=== PATIENT | female | born 1975 | race Caucasian/White ===

== ENCOUNTER → 2018-12-31 17:30 | Observation (INO) ==
[2018-12-31 14:05] LABS: Amphetamine Screen,Urine Negative ng/mL (Cutoff=1000); Barbiturate Screen,Urine Negative ng/mL (Cutoff=200); Benzodiazepines Screen,Urine Negative ng/mL (Cutoff=200); Cannabinoid Screen,Urine Negative ng/mL (Cutoff = 50); Cocaine Screen,Urine Negative ng/mL (Cutoff= 300); Opiate Screen,Urine Negative ng/mL (Cutoff=300); Phencyclidine Screen,Urine Negative ng/mL (Cutoff=25)
[~2018-12-31 17:30] MED LIST: Ringers Solution, Lactated 1,000 ML IVC ONE; Ringers Solution, Lactated 1,000 ML IVC SCH; Ringers Solution, Lactated 1,000 ML ONE
--- NOTE | 2018-12-31 17:54 | OB/GYN Progress Note ---
Date of Encounter: 12/31/18 Time of Encounter: 17:51 - Assessment and Plan (1) 38 weeks gestation of Status: Acute (2) Nausea and vomiting of , antepartum Status: Acute Tracing reviewed with Dr. Enrique, discharged home with labor and when to return to triage precautions. Subjective - Subjective Interval history: Patient sent for over from the office with orders from Dr. Biswas for IV hydration. Care coordinated by nurses with Dr. Biswas. Requested by RN per Dr. Biswas to evaluate tracing if tracing is appropriate to discharge patient. Patient states she was sick with nausea vomiting and diarrhea over the weekend and was dehydrated. States she has been followed in the office for MAURICE checks in due to low MAURICE is Dr. Biswas on is her to come over and have IV hydration. Reports good movement, denies vaginal bleeding or leaking of fluid, Scheduled for induction in 2 days Antepartum ROS: movement normal, no loss of fluid, no vaginal bleeding, no contractions Objective - Vital Signs Vital Signs: Intake and Output 12/31/18 12/31/18 12/31/18 07:59 15:59 23:59 Other: Weight 34.53 kg Patient Weight 12/31/18 23:59 Weight 34.53 kg - Exam FHR comments: At discharge Baseline 135 and category 1 reactive NST. Abdomen: Present: soft
== END | disposition home or self-care (01) ==
LOC: 1NENULAB
PROVIDERS: ADMIT Obstetrics & Gynecology; ATTEND Obstetrics & Gynecology

== ENCOUNTER 2019-01-03 06:00 | Inpatient (IN) ==
[2019-01-03] MEDS ORDERED: *HR* Nalbuphine 10 MG/ML AMPUL IVP PRN (06:24)
[2019-01-03] MEDS ORDERED: Ondansetron 4 MG/2 ML VIAL IVP PRN (06:24)
[2019-01-03] MEDS ORDERED: Famotidine 20 MG/2 ML VIAL IVP PRN (06:24)
[2019-01-03] MEDS ORDERED: Metoclopramide 10 MG/2 ML VIAL IVP PRN (06:24)
[2019-01-03] MEDS ORDERED: miSOPROStol 25 MCG TABLET PO PRN (06:24)
[2019-01-03] MEDS ORDERED: Naloxone 0.4 MG/ML INJ IVP PRN (06:24)
[2019-01-03] MEDS ORDERED: Oxytocin 20 units/ LR 1000 mL 20 UNIT/1,000 ML BAG IVC SCH ×2 (06:30→18:32)
[2019-01-03] MEDS ORDERED: Ringers Solution, Lactated 1,000 ML IVC SCH (06:30)
--- NOTE | 2019-01-03 06:52 | Anesthesia Evaluation PreOp ---
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 History: Denies Any Significant HX Other Medical History: GERD Anesthesia History: No Prior Anesthetic Complications, Past Anesthesia (2 vaginal del in past 1 with epidural, 1 without.) Alcohol Use: none Drug use: none Medications and Allergies Omeprazole [PriLOSEC] 01/03/19 [History] Allergy/AdvReac Type Severity Reaction Status Date / Time No Known Allergies Allergy Verified 01/03/19 06:27 Anesthesia Exam - HEENT Pupil (Motor): Pupils equal Mallampati: III Teeth: Normal Oral Opening: Greater than 3 - SCROLL MACHINE OPERATOR LOC: Oriented SCROLL MACHINE OPERATOR Motor: Normal RUE, Normal LUE, Normal RLE, Normal LLE, Normal Face SCROLL MACHINE OPERATOR Sensory: Normal: RUE, LUE, RLE, LLE, Face - Cardiac Rhythm: Regular Murmur: None - Pulmonary Breath Sounds: bilateral Clear Respiratory Effort: Symmetrical Anesthesia Assess/Plan ASA Score: 2 Level of consciousness: Cooperative, Oriented Anesthetic Plan: General, Spinal, Epidural Monitoring Plan: Standard Monitors Recovery Plan: PACU
[2019-01-03] MEDS ORDERED: Epidural Premix (fent/bupiv) 110 ML EP SCH (07:00)
[2019-01-03 07:04] LABS: Amphetamine Screen,Urine Negative ng/mL (Cutoff=1000); Barbiturate Screen,Urine Negative ng/mL (Cutoff=200); Benzodiazepines Screen,Urine Negative ng/mL (Cutoff=300); Cannabinoid Screen,Urine Negative ng/mL (Cutoff = 50); Cocaine Screen,Urine Negative ng/mL (Cutoff= 300); Opiate Screen,Urine Negative ng/mL (Cutoff=300); Phencyclidine Screen,Urine Negative ng/mL (Cutoff=25)
--- NOTE | 2019-01-03 07:11 | Event Note ---
Date of Encounter: 01/03/19 Time of Encounter: 07:07 Double cervical ripening balloon inserted without difficulty. 60 mL sterile water instilled into uterine balloon, 40 mL instilled into vaginal balloon. Patient tolerated with minimal discomfort.
[2019-01-03 07:22] LABS: Basophils % 0.2 %; Eosinophils # 0.1 K/mcL (0.0-0.6); Eosinophils % 0.9 %; Hematocrit 34.7 % (35.3-44.9); Hemoglobin 11.3 g/dL (11.5-15.4); Immature Granulocytes % 0.5 % (0-4); Lymphocytes # 2.2 K/mcL (0.6-4.6); Lymphocytes % 27.8 %; Mean Corpuscular HGB Conc 32.6 g/dL (31.6-35.5); Mean Corpuscular Hemoglobin 27.8 pg (28.0-33.3); Mean Corpuscular Volume 85.5 fL (83.0-100.0); Mean Platelet Volume 10.2 fL (9.4-12.4); Monocytes # 0.5 K/mcL (0.0-1.3); Neutrophils # 5.2 K/mcL (1.6-8.9); Platelet Count 331 K/mcL (140-400); Red Blood Count 4.06 M/mcL (3.82-4.97); Red Cell Distribution Width 13.3 % (11.5-14.5); Segmented Neutrophils % 64.6 %
--- NOTE | 2019-01-03 07:26 | OB/GYN History & Physical ---
Date of Encounter: 01/03/19 Time of Encounter: 07:16 Assessment and Plan (1) 39 weeks gestation of Current visit: Yes Status: Acute start pitocin, expectant management (2) Elective induction of labor planned Current visit: Yes Status: Acute planned induction proceeding as planned History of Present Illness Chief complaint: presents for induction of labor HPI: Ms. Jernigan is a 43 year old female at 39w1d who presents for induction of labor. She has had two previous vaginal deliveries with two miscarriages and one D&C. She had an uneventful that was uncomplicated by either gestational HTN or gestational DM. She does note an episode of gastroenteritis over this past weekend requiring administration of IV fluids and since that time has not had a bowel movement. She denies any fevers/chills, regular contractions, nausea/vomiting, diarrhea. She reports clear vaginal discharge but denies any foul smells or copious liquid drainage. Pmhx: GERD during for which she takes prilosec. Other daily medications include vitamins. No known drug allergies. No hx of hosp italization outside of childbirth. SurgHx: D&C. Socialhx: Regular diet. No regular exercise pattern. No illicit drugs. No tobacco usage. Drinks one soda per day. 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 No recent foreign travel. Past Med Surg Social Fam HX - Past Medical History Medical history: no medical history Psychiatric history: anxiety - Past Surgical History Surgical History: non-contributory Additional surgical history: wisdom teeth. D&C-2015 - Social History Smoking Status: Never smoker Smokeless Tobacco Status: No Alcohol use: none Drug use: none Occupational status: employed Current living situation: Home - Independent, With Family Activity Level: Independent ambulation Recent Out of Country Travel Within the Last 8 Weeks: No Exposure or Possible Exposure to Illness During Travel: No - Family History Father Living Status: Still Living Hx Family Cardiac Disorders: Yes (bypass surgery, aortic anyerusm) Hx Family Respiratory Disorders: No Hx Family Cancer: No Hx Family GI Disorders: No Hx Family Genitourinary Disorders: No Hx Family Endocrine Disorder: No Hx Family Musculoskeletal Disorders: No Hx Family Neuromuscular Disorders: No Hx Family Neurologic Disorders: No Hx Family HEENT Disorders: No Hx Family Autoimmune Disorders: No Hx Family Reproductive Disorders: No Hx Family Psychosocial Disorders: No Hx Family Medical Disorders: No Obstetrical History - Pregnancies : 5 Para: 2 Term: 2 : 0 Ab's: 2 Livin Medications and Allergies Omeprazole [PriLOSEC] 01/03/19 [History] Allergy/AdvReac Type Severity Reaction Status Date / Time No Known Allergies Allergy Verified 01/03/19 06:27 Review of System OB - Constitutional Constitutional ROS IM: no chills, no fever(s) - Nose, mouth, and throat Nose, mouth and throat: nasal congestion - Cardiovascular Cardiovascular: no chest pain, no edema, no leg edema, no pedal edema - Respiratory Respiratory: no cough, no dyspnea - Gastrointestinal Gastrointestinal: no abdominal pain, no diarrhea, no nausea - Genitourinary Genitourinary: vaginal discharge (clear discharge), no difficulty urinating, no dysuria - Muscloskeletal Musculoskeletal: no neck pain - Neurological Nerological: no dizziness, no numbness, no paresthesias Exam - Constitutional Constitutional: well developed, well nourished, no acute distress - HEENT HEENT: Normocephaly, Mucus Membranes Moist - Neck Neck exam: full ROM - Lungs Respiratory exam: CTAB - Cardiovascular Cardiovascular exam: +S1, +S2 - Abdomen Abdomen: Present: bowel sounds normal, gravid - Extremities Extremities exam: full ROM, normal capillary refill Results Result Diagrams: 01/03/19 06:42 All other labs normal. - VTE Reasons for not Prescribing Prophylaxis: Treatment not Indicated - Low risk for VTE
--- NOTE | 2019-01-03 10:40 | Event Note ---
Date of Encounter: 01/03/19 Time of Encounter: 10:39 Patient doing well. No complaints. Bateman is now. Cervix is 6 cm 80% effaced to -3 station. Patient very difficult check. We will get epidural. We will begin Pitocin. We will continue induction.
--- NOTE | 2019-01-03 11:21 | Anesthesia Procedures ---
Date of Encounter: 01/03/19 Time of Encounter: 19 Procedures: Anesthesia - Epidural/Spinal Patient ID/Chart reviewed: Yes Patient examined: Yes OB Eval: Gestational age: 39.1 OB Eval: : 3 OB Eval: Hx Para: 2 OB Eval: Dilated at (cm): 6 OB Eval: Contractions: Non-stressed pattern Consent Obtained: Yes Supplemental Oxygen: None/Room Air Site Prep: Aseptic Technique, Sterile prep and drape, Povidone-Iodine 1% Patient position: upright Local Anesthetic: Lidocaine 1% Amount of Local Anesthetic used: 3 Touhy Needle Gauge: 18 Touhy Needle Depth (cm): 7 Catheter Depth at Skin (cm): 19 Test Dose (1.5% Lido + Epi): Volume given (mls): 5 Test Dose Result: Negative Loading Dose: Other: 4ml of epidural pharm bag premix solution Loading Dose Administered: Thru Catheter Infusion Med: 0.125% Bupivacaine w/ 2 mcg/ml Fentanyl Infusion Rate (mls/hr): 12 ([id number]) Catheter Secured in Place: Tegaderm, Tape Interspace Used: L3-L4 Loss of Resistance (PRINCESS): Yes Blood: No CSF: No Paresthesia: Yes (transient with cath placement) Procedure: pt tolerated procedure well. no complications. vss. fhr stable.
--- NOTE | 2019-01-03 16:17 | OB/GYN Procedure Note ---
Delivery - Delivery Date: 01/03/19 Provider: Jan Ross Intrapartum events: none Delivery induction: dawkins, misoprostol Delivery augmentation: rupture of membranes, pitocin Delivery monitor: external FHT, external uterine Anesthesia: epidural Quantitated Blood Loss: 200 - Infant (s) Infant A Delivery Date: 01/03/19 Delivery Time: 15:53 Presentation: vertex Position: ALEE Route of delivery: Gender: Male Viability: Viable Pounds: 8 Ounces: 3 Weight Gram: 3.71 kg at 1 minute: 8 at 5 mins: 8 Shoulder Dystocia: not encountered Specimens collected: cord blood Placenta: spontaneous Cord: 3 umbilical vessels - Repair Episiotomy: none Laceration Description: Perineal - 2nd Degree - Complications Delivery complications: none Delivery comments: Patient progressed to complete and pushing. She had a spontaneous vaginal delivery of a male over an intact perineum. This was in the perineum easily. In the started at FRANCINE was rotated to ALEE and then delivered. Infant cried immediately upon delivery. The cord was clamped and cut after 1 minute cord blood was obtained. Placenta was then delivered spontaneously and intact. There are no cervical, vaginal or periurethral lacerations noted. There was a second-degree perineal laceration repaired with 3-0 Vicryl suture in usual fashion. Patient delivered a male weight was 8 lbs. 3 oz., 3710 g. Apgars are 8 at 1 minute and 8 at 5 minutes. Estimated blood loss is 200 mL. - Disposition Mom disposition: stable in LDR [place] disposition: stable in LDR
[2019-01-03] MEDS ORDERED: Measles/Mumps/Rubella Vacc 0.5 ML VIAL SQ PRN (18:32)
[2019-01-03] MEDS ORDERED: Acetaminophen 325 MG TABLET PO PRN (18:32)
[2019-01-03] MEDS ORDERED: Rho Immune Globulin 1,500 UNIT SYRINGE IM PRN (18:32)
[2019-01-03] MEDS: Ibuprofen 600 MG TABLET PO PRN (20:11)
[2019-01-03] MEDS ORDERED: Benzocaine/Menthol 56 GM AEROSOL SPRAY TP ONE (20:20)
[2019-01-04] MEDS: Ibuprofen 600 MG TABLET PO PRN ×2 (01:51→10:32)
[2019-01-04 07:21] LABS: Basophils % 0.3 %; Eosinophils # 0.1 K/mcL (0.0-0.6); Eosinophils % 0.7 %; Hematocrit 34.9 % (35.3-44.9); Hemoglobin 11.2 g/dL (11.5-15.4); Immature Granulocytes % 0.5 % (0-4); Lymphocytes # 2.5 K/mcL (0.6-4.6); Lymphocytes % 22.5 %; Mean Corpuscular HGB Conc 32.1 g/dL (31.6-35.5); Mean Corpuscular Hemoglobin 27.4 pg (28.0-33.3); Mean Corpuscular Volume 85.3 fL (83.0-100.0); Mean Platelet Volume 10.2 fL (9.4-12.4); Monocytes # 0.7 K/mcL (0.0-1.3); Monocytes % 6.5 %; Neutrophils # 7.7 K/mcL (1.6-8.9); Platelet Count 310 K/mcL (140-400); Red Blood Count 4.09 M/mcL (3.82-4.97); Red Cell Distribution Width 13.4 % (11.5-14.5); Segmented Neutrophils % 69.5 %
[2019-01-04 07:51] VITALS: BP 93/60
[2019-01-04] MEDS ORDERED: Prenatal Vit/FA 1 EACH TABLET PO SCH (09:00)
--- NOTE | 2019-01-04 10:25 | Discharge Summary ---
Date of Encounter: 01/04/19 Time of Encounter: 10:25 - Discharge Medications Prescriptions: New Acetaminophen [Tylenol] 650 mg PO Q6HR PRN tablet PRN Reason: Mild Pain Ibuprofen [Motrin] 600 mg PO Q6HR PRN #60 tablet PRN Reason: Cramping Docusate [Colace] 100 mg PO BID #30 capsule Continued Omeprazole [PriLOSEC] Home Medications: Omeprazole [PriLOSEC] 01/03/19 [History] Acetaminophen [Tylenol] 650 mg PO Q6HR PRN tablet 01/04/19 [Rx] Docusate [Colace] 100 mg PO BID #30 capsule 01/04/19 [Rx] Ibuprofen [Motrin] 600 mg PO Q6HR PRN #60 tablet 01/04/19 [Rx] Allergies/Adverse Reactions: 3 Allergy/AdvReac Type Severity Reaction Status Date / Time No Known Allergies Allergy Verified 01/03/19 06:27 Data Procedures and tests throughout hospitalization: Laboratory Tests 01/03/19 01/03/19 01/04/19 06:42 06:42 06:55 WBC 8.0 11.0 RBC 4.06 4.09 Hgb 11.3 L 11.2 L Hct 34.7 L 34.9 L MCV 85.5 85.3 MCH 27.8 L 27.4 L MCHC 32.6 32.1 RDW 13.3 13.4 Plt Count 331 310 MPV 10.2 10.2 Immature Gran % 0.5 0.5 Seg Neutrophils % 64.6 69.5 Lymphocytes % 27.8 22.5 Monocytes % 6.0 6.5 Eosinophils % 0.9 0.7 Basophils % 0.2 0.3 Neutrophils # 5.2 7.7 Lymphocytes # 2.2 2.5 Monocytes # 0.5 0.7 Eosinophils # 0.1 0.1 Basophils # 0.0 0.0 Urine Opiates Screen Negative Ur Barbiturates Screen Negative Ur Phencyclidine Scrn Negative Ur Amphetamines Screen Negative U Benzodiazepines Scrn Negative Urine Cocaine Screen Negative U Marijuana (THC) Screen Negative Ur Drug Screen Interp See Below Labs on day of discharge: Labs from last 24 hours 01/04/19 06:55 WBC 11.0 RBC 4.09 Hgb 11.2 L Hct 34.9 L MCV 85.3 MCH 27.4 L MCHC 32.1 RDW 13.4 Plt Count 310 MPV 10.2 Immature Gran % 0.5 Seg Neutrophils % 69.5 Lymphocytes % 22.5 Monocytes % 6.5 Eosinophils % 0.7 Basophils % 0.3 Neutrophils # 7.7 Lymphocytes # 2.5 Monocytes # 0.7 Eosinophils # 0.1 Basophils # 0.0 Date of admission: 01/03/19 06:05 Primary care physician: Rowena Solorio Consults: 01/03/19 18:32 Consult to Supervisor Sunglasses [CONS] Routine Comment: Vaginal delivery, consult needed Discharging clinician: Ashly Reich Anticipated date of discharge: 01/04/19 - Patient Status Disposition: Home, Self-Care Condition: Good Functional capacity at discharge: independent ambulation Overall status at discharge: patient is back to baseline - Discharge Instructions Follow Up With: Amanda Jones DO [Primary Care Provider] - Jan Ross MD [Partnered Physician] - - Diet and Activity Activity: resume usual activities as tolerated Diet: regular diet Hospital Course Reason for admission: induction of labor Delivery: Episiotomy: none Laceration: 2nd degree Other procedures: none complications: none Discharge diagnosis: IUP at term delivered baby: male Hospital course: Delivery - Delivery Date: 01/03/19 Provider: Jan Ross Intrapartum events: none Delivery induction: dawkins, misoprostol Delivery augmentation: rupture of membranes, pitocin Delivery monitor: external FHT, external uterine Anesthesia: epidural Quantitated Blood Loss: 200 - Infant (s) A Delivery Date: 01/03/19 Infant Delivery Time: 15:53 Presentation: vertex Position: ALEE Route of delivery: Gender: Male Viability: Viable Pounds: 8 Ounces: 3 Weight Gram: 3.71 kg at 1 minute: 8 at 5 mins: 8 Shoulder Dystocia: not encountered Specimens collected: cord blood Placenta: spontaneous Cord: 3 umbilical vessels - Repair Episiotomy: none Laceration Description: Perineal - 2nd Degree - Complications Delivery complications: none Delivery comments: Patient progressed to complete and pushing. She had a spontaneous vaginal delivery of a male infant over an intact perineum. This was in the perineum easily. In the started at FRANCINE was rotated to ALEE and then delivered. Infant cried immediately upon delivery. The cord was clamped and cut after [address] blood was obtained. Placenta was then delivered spontaneously and intact. There are no cervical, vaginal or periurethral lacerations noted. There was a second-degree perineal laceration repaired with 3-0 Vicryl suture in usual fashion. Patient delivered a male infant weight was 8 lbs. 3 oz., 3710 g. Apgars are 8 at 1 minute and 8 at 5 minutes. Estimated blood loss is 200 mL. - Disposition Mom disposition: stable in PP and appropriate for discharge Time Attestation: Total time spent providing and/or coordinating discharge services: Time Spent: Less than 30 minutes Exam - Constitutional Vitals: Temp Pulse Resp BP Pulse Ox 98.7 F 79 14 93/60 99 01/04/19 07:50 01/04/19 07:50 01/04/19 07:50 01/04/19 07:50 01/04/19 07:50 General appearance IM: A&O X 3 - Respiratory Respiratory exam: Present: CTAB - Cardiovascular Cardiovascular exam IM: Present: RRR - GI/Abdominal GI/Abdominal exam IM: soft - Uterine Tone: Firm Uterus Position: At Umbilicus - Extremities Exam Extremities exam IM: Present: normal capillary refill, normal inspection - Neurological Exam Neurological exam: normal gait, oriented X3 - Psychiatric Additional comments: reports good mood
== END 2019-01-04 18:00 | disposition home or self-care (01) | DRG 807 ==
LOC: 1NENULAB 06:05 → 1NENUOBS 18:18
PROVIDERS: ADMIT Obstetrics & Gynecology; ATTEND Obstetrics & Gynecology